=== PATIENT | female | born 1990 | race Caucasian/White ===

== ENCOUNTER 2016-08-28 16:13 | Emergency (ER) | payer OTHER ==
[~2016-08-28] VITALS: Ht 167.6 cm; Wt 61.0 kg
[~2016-08-28 16:13] MED LIST: BUDE100T PO; IBUP600 PO; PNVPAK PO
[2016-08-28 16:19] VITALS: BP 131/82; PULSE 110; RESP 16; TEMP 100.1; O2SAT 95
[2016-08-28] MEDS ORDERED: ZITHTAB PO (16:41)
[2016-08-28] MEDS ORDERED: ROBITUSSIN AC PO (16:41)
[2016-08-28] MEDS ORDERED: ZOFR4TAB3 SL (16:41)
--- NOTE | 2016-08-28 16:42 | PD ---
HPI Chief Complaint: Cold / Flu Symptoms Time Seen by Provider: 16:34 Travel History International Travel<30 days: No Contact w/Intl Traveler<30days: No Traveled to known affect area: No History of Present Illness HPI 26-year-old female complains of coughing congestion nausea vomiting and body ache. Patient states that the coughing congestion started about 6 days ago. Patient started intermittent nausea vomiting for the past 2 days. Patient states the cough is persistent and nonproductive. Patient denies any headache. Patient denies any chest pain or shortness of breath. Patient denies abdominal pain. Patient denies any dysuria frequency. Patient denies any vaginal discharge or bleeding. PFSH Past Medical History Medical History: Denies Significant Hx Influenza Vaccination: Yes ?: Not LMP: 08/06/16 : 1 Para: 1 Miscarriage: 0 : 0 Past Surgical History Surgical History: No Previous Surgery Social History Alcohol Use: Yes (2 drinks weekly) Tobacco Use: No Substance Use: No Allergies-Medications (Allergen,Severity, Reaction): Coded Allergies: Iodine (Verified Allergy, Severe, Anaphylaxis, 08/28/16) Reported Meds & Prescriptions Reported Meds & Active Scripts Active Motrin 600 Mg Tab (Ibuprofen) 600 Mg Tab 600 Mg PO Q6H PRN Reported Bupropion Hcl (Bupropion HCl) 100 Mg Tab 100 Mg PO DAILY Pnv Ob+Dha ( Multivitamins) Nando 1 Cap PO Review of Systems General / Constitutional: No: Fever Eyes: No: Visual changes HENT: No: Headaches Cardiovascular: No: Chest Pain or Discomfort Respiratory: Positive: Cough, No: Shortness of Breath Gastrointestinal: Positive: Nausea, Vomiting, No: Abdominal Pain Genitourinary: No: Dysuria Musculoskeletal: No: Pain Skin: No Rash Neurologic: No: Weakness Psychiatric: No: Depression Endocrine: No: Polydipsia Hematologic/Lymphatic: No: Easy Bruising Physical Exam Narrative GENERAL: Well-nourished, well-developed patient. SKIN: Warm and dry. HEAD: Normocephalic. EYES: No scleral icterus. No injection or drainage. Throat: Nonerythematous. NECK: Supple, trachea midline. No JVD or lymphadenopathy. CARDIOVASCULAR: Regular rate and rhythm without murmurs, gallops, or rubs. RESPIRATORY: Breath sounds equal bilaterally. No accessory muscle use. GASTROINTESTINAL: Abdomen soft, non-tender, nondistended. MUSCULOSKELETAL: No cyanosis, or edema. BACK: Nontender without obvious deformity. No CVA tenderness. Data Data Last Documented VS Vital Signs Date Time Temp Pulse Resp B/P Pulse Ox O2 Delivery O2 Flow Rate FiO2 08/28/16 16:19 100.1 110 16 131/82 95 MDM Medical Decision Making Medical Screen Exam Complete: Yes Emergency Medical Condition: Yes Differential Diagnosis Differential diagnoses: Viral syndrome, bronchitis, pneumonia, gastroenteritis, UTI, pyelonephritis. Narrative Course 26 year female with coughing congestion nausea vomiting body ache. Diagnosis Primary Impression: Bronchitis Additional Impression: Viral syndrome Patient Instructions: General Instructions Additional Instructions: Off work for 2 more days. Take medications as directed. Follow-up with personal physician. Return if worse. Tylenol for aching pain. Encourage by mouth fluid. Med/Other Pt SpecificInfo: Prescription(s) given Scripts Ondansetron Odt (Zofran Odt)4 Mg Tab4 Mg SL Q6HR PRN (Nausea/Vomiting) #10 TAB Ref 0 Prov:Jw Krause MD 08/28/16 [Laurasin Ac] No Conflict Check10 Ml PO #120 Prov:Jw Krause MD 08/28/16 Azithromycin (Zithromax Z-Nando)250 Mg [id number] Mg PO DIRECTED #1 DSPK 500 MG (2 tabs) day 1, then 1 tab days 2-5. Prov:Jw Krause MD 08/28/16 Disposition: 01 DISCHARGE HOME Condition: Stable Jw Krause MD Aug 28, 2016 16:42
== END 2016-08-28 16:54 | disposition home or self-care (01) ==
LOC: PHED 16:13
DX: J40 Bronchitis, not specified as acute or chronic (principal); B34.9 Viral infection, unspecified
CPT/HCPCS: 99283